=== PATIENT | male | born 1960 | race Hispanic/Latino ===

== ENCOUNTER → 2017-09-05 | Outpatient (CLI) | payer BC ==
--- NOTE | 2017-09-05 13:01 | Diagnostic Imaging Report ---
TECHNIQUE: Magnetic resonance imaging of the LEFT SHOULDER was performed WITHOUT injected contrast. COMPARISON: None available. HISTORY: Left shoulder pain FINDINGS: MUSCLES AND TENDONS: Rotator Cuff: Tendons: Partial-thickness articular sided and bursal sided tearing of the supraspinatus tendon example coronal image 13 and 15. Muscles: No focal muscle atrophy. Biceps Tendon: The long head of the biceps tendon is within the bicipital groove. GLENOHUMERAL JOINT: Glenoid Labrum: No detached labral tear. Articular Cartilage: Partial thickness cartilage loss. AC JOINT AND ACROMION: Mild hypertrophic degenerative changes of the acromioclavicular joint. The acromion is unremarkable. BONE: No acute fracture. SOFT TISSUES: Infiltration of the rotator cuff interval and mild thickening of the axillary recess. IMPRESSION: Supraspinatus low-grade partial-thickness articular and bursal sided tearing. No full-thickness tear, retraction, or atrophy. Acromioclavicular degenerative arthrosis. Possible adhesive capsulitis. Signed by: Dr. Austin Manuel M.D. on 09/05/2017 12:58 PM
== END ==
LOC: MRI 10:20
PROVIDERS: ATTEND Psychiatry & Neurology Clinical Neurophysiology
DX: G54.0 Brachial plexus disorders (principal)

== ENCOUNTER 2017-10-26 10:23 | Outpatient (RCR) | payer BC | END 2017-11-14 | LOC: ST 10:23 | PROVIDERS: ATTEND Psychiatry & Neurology Clinical Neurophysiology | DX: J38.00 Paralysis of vocal cords and larynx, unspecified (principal); E11.29 Type 2 diabetes mellitus with other diabetic kidney complication ==

== ENCOUNTER 2017-12-07 12:10 | Outpatient (RCR) | payer BC ==
[~2017-12-07 12:10] MED LIST: SODIUM CHLORIDE 0.9% 500ML 500 ML ONE
== END 2017-12-15 ==
LOC: ST 12:10
PROVIDERS: ATTEND Psychiatry & Neurology Clinical Neurophysiology
DX: J38.00 Paralysis of vocal cords and larynx, unspecified (principal); E11.29 Type 2 diabetes mellitus with other diabetic kidney complication; R49.0 Dysphonia; R49.8 Other voice and resonance disorders
CPT/HCPCS: 92507 ×2; J7040

== ENCOUNTER 2018-01-08 12:56 | Outpatient (RCR) | payer BC | END 2018-01-14 | LOC: PT 12:56 | PROVIDERS: ATTEND Specialist | DX: M77.8 Other enthesopathies, not elsewhere classified (principal); M24.612 Ankylosis, left shoulder ==

== ENCOUNTER 2018-01-23 12:18 | Outpatient (RCR) | payer BC | END 2018-02-14 | LOC: PT 12:18 | PROVIDERS: ATTEND Specialist | DX: M24.612 Ankylosis, left shoulder (principal); M25.512 Pain in left shoulder; M25.612 Stiffness of left shoulder, not elsewhere classified; M62.81 Muscle weakness (generalized) | CPT/HCPCS: 97139 ==

== ENCOUNTER → 2018-12-04 | Outpatient (CLI) | payer BC ==
--- NOTE | 2018-12-04 14:14 | Diagnostic Imaging Report ---
MRI SPINE CERVICAL WO HISTORY: Neck pain COMPARISON: None. TECHNIQUE: Sagittal T1, sagittal T2, sagittal inversion recovery, axial T2 and axial T1 weighted MR images of the cervical spine were obtained without intravenous contrast. DISCUSSION: Alignment: Normal lordosis. No scoliosis. Vertebrae: No definite evidence for fractures, infection, or neoplasm. Cervicomedullary junction: No abnormalities. Spinal cord: Normal in signal and morphology from the foramen magnum through T3-T4. Soft tissues: No signal abnormalities. Mild multilevel disc degeneration is present. C2-C3: Patent canal and foramina. C3-C4: Patent canal and foramina. C4-C5: Mild canal stenosis due to posterior disc osteophyte complex and ligamentum flavum thickening. Mild right foraminal stenosis due to uncovertebral and facet arthrosis. C5-C6: Mild canal stenosis due to posterior disc osteophyte complex and ligamentum flavum thickening. Mild bilateral foraminal stenoses due to uncovertebral and facet arthrosis. C6-C7: Patent canal and foramina. C7-T1: Patent canal and foramina. IMPRESSION: 1. Mild multilevel disc degeneration. 2. Mild degenerative canal stenoses at C4-C5 and C5-C6. 3. Mild right C4-C5 and bilateral C5-C6 degenerative foraminal stenoses. Signed by: Dr. Casey Traore M.D. on 12/04/2018 2:11 PM
== END ==
LOC: MRI 09:52
PROVIDERS: ATTEND Psychiatry & Neurology Clinical Neurophysiology
DX: M54.12 Radiculopathy, cervical region (principal)
CPT/HCPCS: 72141